=== PATIENT | female | born 2000 | race American Indian/Alaskan Native ===

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

== ENCOUNTER 2018-04-23 22:51 | Emergency (ER) | payer MEDICAID, OTHER ==
[2018-04-23 23:06] VITALS: BP 140/92
[2018-04-23] MEDS ORDERED: Oseltamivir 75 MG Cap PO ONE (23:32)
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
== END 2018-04-23 23:45 | disposition home or self-care (01) ==
LOC: DL.ED 22:51
DX: J10.1 Influenza due to other identified influenza virus with other respiratory manifestations (principal)
CPT/HCPCS: 87081; 87430; 87804; 99283; A9270

== ENCOUNTER 2020-08-08 14:00 | Emergency (ER) | payer MEDICAID, OTHER ==
[2020-08-08 15:14] VITALS: BP 135/83; PULSE 75
[2020-08-08] MEDS ORDERED: Ketorolac 30 MG/ML SDV IVPUSH ONE (15:54)
[2020-08-08] MEDS ORDERED: HYDROmorphone 0.5 MG/0.5 ML Syringe IVPUSH ONE (15:54)
[2020-08-08] MEDS ORDERED: Lidocaine 5% 700 MG Patch TRDERM ONE (15:55)
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
== END 2020-08-08 17:46 | disposition home or self-care (01) ==
LOC: DL.ED 14:00
DX: M25.511 Pain in right shoulder (principal); Z88.1 Allergy status to other antibiotic agents
CPT/HCPCS: 96374; 96375; 99283; 99283-25; A9270-GY; J1170; J1885

== ENCOUNTER 2020-09-23 19:05 | Emergency (ER) | payer MEDICAID, OTHER ==
[2020-09-23 19:12] VITALS: BP 141/92; PULSE 77
[2020-09-23] MEDS ORDERED: Ibuprofen 600 MG Tab PO ONE (19:18)
[2020-09-23] MEDS ORDERED: Mupirocin Oint 22 GM Tube TOP ONE (19:18)
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
== END 2020-09-23 19:31 | disposition home or self-care (01) ==
LOC: DL.ED 19:05
DX: S40.872A Other superficial bite of left upper arm, initial encounter (principal); S70.372A Other superficial bite of left thigh, initial encounter; Z88.1 Allergy status to other antibiotic agents; W54.0XXA Bitten by dog, initial encounter
CPT/HCPCS: 99284; A9270

== ENCOUNTER 2021-03-22 19:43 | Emergency (ER) | payer MEDICAID ==
[2021-03-22 20:50] LABS: RESPIRATORY SYNCYTIAL VIR NAA NEGATIVE (NEGATIVE)
[2021-03-22 20:56] LABS: CORONAVIRUS COVID-19 NAA POSITIVE (NEGATIVE)
[2021-03-22 21:19] VITALS: BP 116/61; PULSE 97
== END 2021-03-22 21:41 | disposition home or self-care (01) ==
LOC: DL.ED 19:43
DX: O98.512 Other viral diseases complicating pregnancy, second trimester (principal); U07.1 COVID-19; Z88.1 Allergy status to other antibiotic agents; Z3A.22 22 weeks gestation of pregnancy
CPT/HCPCS: 0241U; 99284

== ENCOUNTER 2021-07-13 14:21 | Inpatient (IN) | payer MEDICAID ==
[2021-07-13] MEDS ORDERED: Tranexamic Acid 1,000 MG in Sodium Chloride 0.9% 100 ML IV PRN (16:51)
[2021-07-13] MEDS ORDERED: Lactated Ringers 1,000 ML IV ONE (16:51)
[2021-07-13] MEDS ORDERED: Misoprostol 400 MCG (4 X 100 MCG TAB) RECTAL PRN ×2 (16:51→23:39)
[2021-07-13] MEDS ORDERED: Ondansetron 4 MG/2 ML SDV IVPUSH PRN (16:51)
[2021-07-13] MEDS ORDERED: Sodium Chloride 0.9% 10 ML Syringe FLUSH PRN (16:51)
[2021-07-13] MEDS ORDERED: Lidocaine 1% 30 ML SDV INJECT PRN (16:51)
[2021-07-13] MEDS ORDERED: Methylergonovine 0.2 MG/1 ML Amp IM PRN (16:51)
[2021-07-13] MEDS ORDERED: Carboprost Tromethamine 250 MCG/1 ML Amp IM PRN (16:51)
[2021-07-13] MEDS ORDERED: Acetaminophen 325 MG Tab PO PRN (16:51)
[2021-07-13] MEDS ORDERED: Penicillin G Potassium 5 MILLUNITS in Sodium Chloride 0.9% 100 ML IV ONE (16:51)
[2021-07-13] MEDS ORDERED: Lactated Ringers 1,000 ML IV SCH (17:00)
[2021-07-13] MEDS ORDERED: Labetalol 100 MG Tab PO ONE (17:01)
[2021-07-13] MEDS: Oxytocin/Normal Saline 30 UNIT/500 ML BAG IV SCH (17:20)
[2021-07-13] MEDS: Penicillin G Potassium 3 MILLUNITS in Sodium Chloride 0.9% 100 ML IV SCH (20:10)
[2021-07-13] MEDS ORDERED: Labetalol 100 MG Tab PO SCH (21:00)
[2021-07-13] MEDS ORDERED: Naloxone 2 MG/2 ML Syringe IVPUSH PRN (21:27)
[2021-07-13] MEDS ORDERED: Promethazine 25 MG/ML SDV IM PRN (21:27)
[2021-07-13] MEDS ORDERED: ePHEDrine 50 MG/ML SDV IVPUSH PRN (21:27)
[2021-07-13] MEDS ORDERED: Magnesium Sulfate/Water 4 GM in Premix Bag 1 BAG IV ONE ×2 (21:30→21:32)
[2021-07-13] MEDS ORDERED: Calcium Gluconate 10% 1 GM/10 ML SDV IV PRN (21:32)
[2021-07-13] MEDS: Magnesium Sulfate/Water 20 GM/500 ML BAG IV SCH (22:16)
[2021-07-13] MEDS ORDERED: fentaNYL 100 MCG/2 ML SDV IVPUSH PRN (22:22)
[2021-07-13] MEDS ORDERED: fentaNYL 100 MCG/2 ML SDV IVPUSH STA (23:22)
[2021-07-13] MEDS ORDERED: Simethicone 80 MG Tab.Chew PO PRN (23:39)
[2021-07-13] MEDS ORDERED: Benzocaine/Menthol 20%-0.5% Spray 78 GM Cannister TOP PRN (23:39)
[2021-07-14] MEDS: Oxytocin/Normal Saline 30 UNIT/500 ML BAG IV SCH (01:35)
[2021-07-14] MEDS: Penicillin G Potassium 3 MILLUNITS in Sodium Chloride 0.9% 100 ML IV SCH (01:52)
[2021-07-14] MEDS: Prenatal Multivitamin with Calcium/Folic Acid/Iron Tab PO SCH (08:33)
[2021-07-14] MEDS: Ibuprofen 800 MG Tab PO PRN (08:33)
[2021-07-14] MEDS: Ferrous Sulfate 325 MG Tab PO SCH ×2 (08:33→22:09)
[2021-07-14] MEDS: Docusate Sodium 100 MG Cap PO PRN ×2 (08:33→22:09)
[2021-07-14] MEDS: Ascorbic Acid 500 MG Tab PO SCH ×2 (08:35→22:09)
[2021-07-14] MEDS: Magnesium Sulfate/Water 20 GM/500 ML BAG IV SCH ×2 (08:37→18:34)
[2021-07-15] MEDS: Ferrous Sulfate 325 MG Tab PO SCH ×2 (09:00→21:25)
[2021-07-15] MEDS: Prenatal Multivitamin with Calcium/Folic Acid/Iron Tab PO SCH (09:00)
[2021-07-15] MEDS: Ascorbic Acid 500 MG Tab PO SCH ×2 (12:08→21:25)
[2021-07-15] MEDS: Docusate Sodium 100 MG Cap PO PRN ×2 (12:08→21:25)
[2021-07-16 08:46] VITALS: BP 124/65; PULSE 71
[2021-07-16] MEDS: Ibuprofen 800 MG Tab PO PRN (08:49)
[2021-07-16] MEDS: Docusate Sodium 100 MG Cap PO PRN (08:49)
[2021-07-16] MEDS: Ascorbic Acid 500 MG Tab PO SCH (08:50)
[2021-07-16] MEDS: Ferrous Sulfate 325 MG Tab PO SCH (08:50)
[2021-07-16] MEDS: Prenatal Multivitamin with Calcium/Folic Acid/Iron Tab PO SCH (08:50)
[2021-07-16] MEDS ORDERED: Famotidine 20 MG Tab PO SCH (09:00)
== END 2021-07-16 12:15 | disposition home or self-care (01) | DRG 807 ==
LOC: DL.OBCHECK 14:21 → DL.OB 16:10 → UNDOADMOB 16:10 → DL.OB 16:51 → OBSVTOIN 23:04 → DL.OB 23:04
PROVIDERS: ADMIT Family Medicine; ATTEND Family Medicine
PROC: 10E0XZZ Delivery of Products of Conception, External Approach (ICD-10-PCS; principal; 2021-07-13)
PROC: 3E033VJ Introduction of Other Hormone into Peripheral Vein, Percutaneous Approach (ICD-10-PCS; 2021-07-13)
PROC: 10907ZC Drainage of Amniotic Fluid, Therapeutic from Products of Conception, Via Natural or Artificial Opening (ICD-10-PCS; 2021-07-13)
PROC: 3E0P7VZ Introduction of Hormone into Female Reproductive, Via Natural or Artificial Opening (ICD-10-PCS; 2021-07-13)
DX: O14.14 Severe pre-eclampsia complicating childbirth (principal); Z37.0 Single live birth; D64.9 Anemia, unspecified; Z3A.38 38 weeks gestation of pregnancy; F43.10 Post-traumatic stress disorder, unspecified; O99.344 Other mental disorders complicating childbirth; O77.0 Labor and delivery complicated by meconium in amniotic fluid; Z20.822 Contact with and (suspected) exposure to COVID-19; O99.02 Anemia complicating childbirth; Z86.16 Personal history of COVID-19
CPT/HCPCS: 36415; 59409; 76819; 81003; 82565; 82570; 83735; 84156; 84450; 84460; 84520; 85027; A9270-GY; J2405; J2540; J2590; J3010; J3475; J7120; U0002

== ENCOUNTER 2021-10-19 19:09 | Emergency (ER) | payer MEDICAID | END 2021-10-19 20:20 | disposition home or self-care (01) | LOC: MERGE 19:09 → DL.ED 19:09 | DX: J06.9 Acute upper respiratory infection, unspecified (principal); Z88.1 Allergy status to other antibiotic agents; Z88.8 Allergy status to other drugs, medicaments and biological substances; Z20.822 Contact with and (suspected) exposure to COVID-19 | CPT/HCPCS: 87081; 87430; 99283; U0002 ==

== ENCOUNTER 2022-04-05 23:23 | Emergency (ER) | payer MEDICAID ==
[2022-04-06 00:05] LABS: ANION GAP 17.5 mEq/L (7-13); CHLORIDE,CL 102 mmol/L (98-107); SODIUM,NA 138 mmol/L (136-145)
[2022-04-06 00:10] LABS: ESTIMATED GFR 131 mL/min (>=60)
[2022-04-06 00:19] LABS: BENZODIAZEPINE,URINE NEGATIVE (NEGATIVE); MDMA (ECSTASY), URINE NEGATIVE (NEGATIVE); METHADONE,URINE NEGATIVE (NEGATIVE); METHAMPHETAMINES,URINE NEGATIVE (NEGATIVE); OPIATES,URINE NEGATIVE (NEGATIVE); TCA,URINE NEGATIVE (NEGATIVE)
[2022-04-06 00:20] LABS: AMPHETAMINES,URINE NEGATIVE (NEGATIVE); BARBITURATES,URINE NEGATIVE (NEGATIVE); OXYCODONE,URINE NEGATIVE (NEGATIVE); PHENCYCLIDINE,URINE NEGATIVE (NEGATIVE)
[2022-04-06] MEDS ORDERED: Sodium Chloride 0.9% 1,000 ML IV ONE (00:46)
[2022-04-06 00:48] LABS: CORONAVIRUS COVID-19 NAA NEGATIVE (NEGATIVE)
[2022-04-06] MEDS ORDERED: Ondansetron 4 MG/2 ML SDV IVPUSH ONE (00:52)
== END 2022-04-06 03:16 | disposition home or self-care (01) ==
LOC: DL.ED 23:23
DX: O99.613 Diseases of the digestive system complicating pregnancy, third trimester (principal); K52.9 Noninfective gastroenteritis and colitis, unspecified; Z88.1 Allergy status to other antibiotic agents; Z88.6 Allergy status to analgesic agent; Z3A.37 37 weeks gestation of pregnancy; Z20.822 Contact with and (suspected) exposure to COVID-19
CPT/HCPCS: 0240U; 36415; 76815; 80053; 80305-QW; 80307; 81001; 81025; 83605; 84702; 85025; 87040; 96361; 96374; 99284; 99284-25; J2405; J7030

== ENCOUNTER 2022-04-13 20:04 | Emergency (ER) | payer MEDICAID ==
[2022-04-13 21:17] LABS: ANION GAP 14.7 mEq/L (7-13)
== END 2022-04-13 23:58 | disposition home or self-care (01) ==
LOC: DL.ED 20:04
DX: O20.9 Hemorrhage in early pregnancy, unspecified (principal); Z3A.10 10 weeks gestation of pregnancy; Z88.1 Allergy status to other antibiotic agents; Z88.8 Allergy status to other drugs, medicaments and biological substances
CPT/HCPCS: 36415; 76815; 80053; 84702; 85025; 99284

== ENCOUNTER 2022-10-31 08:31 | Inpatient (IN) | payer MEDICAID ==
[2022-10-31] MEDS ORDERED: Acetaminophen 325 MG Tab PO PRN (09:13)
[2022-10-31] MEDS ORDERED: Misoprostol 400 MCG (4 X 100 MCG TAB) RECTAL PRN ×2 (09:13→13:29)
[2022-10-31] MEDS ORDERED: Naloxone 2 MG/2 ML Syringe IVPUSH PRN (09:13)
[2022-10-31] MEDS ORDERED: Carboprost Tromethamine 250 MCG/1 ML Amp IM PRN ×2 (09:13→13:29)
[2022-10-31] MEDS ORDERED: fentaNYL 100 MCG/2 ML SDV IVPUSH PRN (09:13)
[2022-10-31] MEDS ORDERED: Methylergonovine 0.2 MG/1 ML Amp IM PRN (09:13)
[2022-10-31] MEDS ORDERED: Sodium Chloride 0.9% 10 ML Syringe FLUSH PRN ×2 (09:13→13:29)
[2022-10-31] MEDS ORDERED: Lidocaine 1% 30 ML SDV INJECT ONE (09:13)
[2022-10-31] MEDS ORDERED: Ondansetron 4 MG/2 ML SDV IVPUSH PRN (09:13)
[2022-10-31] MEDS ORDERED: Tranexamic Acid 1,000 MG in Sodium Chloride 0.9% 100 ML IV PRN ×2 (09:13→13:29)
[2022-10-31] MEDS ORDERED: Lactated Ringers 1,000 ML IV ONE (09:13)
[2022-10-31] MEDS ORDERED: Lactated Ringers 1,000 ML IV SCH (09:15)
[2022-10-31] MEDS ORDERED: Oxytocin/Normal Saline 30 UNIT/500 ML BAG IV SCH (09:15)
[2022-10-31] MEDS ORDERED: Phenylephrine HCl In 0.9% NaCl 1 MG/10 ML Syringe IVPUSH PRN ×2 (09:18→10:18)
[2022-10-31] MEDS ORDERED: ePHEDrine 50 MG/ML SDV IVPUSH PRN ×2 (09:18→10:18)
[2022-10-31] MEDS ORDERED: Ropivacaine 200 MG in Premix Bag 1 BAG EPIDUR SCH ×2 (09:30→10:30)
[2022-10-31 09:46] LABS: MEAN CORPUSCULAR HEMOGLOBIN 25.1 pg (27.0-34.0); MEAN CORPUSCULAR HGB CONC 32.5 g/dL (33.0-35.0); MEAN CORPUSCULAR VOLUME 77.4 fL (80-100); RED BLOOD CELL COUNT 5.17 10^6/uL (4.2-5.4); WHITE BLOOD CELL COUNT,WBC 10.9 10^3/uL (5.0-10.0)
[2022-10-31] MEDS ORDERED: fentaNYL 100 MCG/2 ML SDV ONE (09:57)
[2022-10-31] MEDS ORDERED: Bupivacaine 0.25% 10 ML SDV ONE (09:57)
[2022-10-31] MEDS ORDERED: Witch Hazel Medicated Pads 100/Jar TOP PRN (13:29)
[2022-10-31] MEDS ORDERED: Ibuprofen 800 MG Tab PO PRN (13:29)
[2022-10-31] MEDS ORDERED: Simethicone 80 MG Tab.Chew PO PRN (13:29)
[2022-10-31] MEDS ORDERED: Benzocaine/Menthol 20%-0.5% Spray 78 GM Cannister TOP PRN (13:29)
[2022-10-31] MEDS ORDERED: Measles, Mumps & Rubella Vaccine 0.5 ML SDV SUBCUT ONE (13:36)
[2022-10-31] MEDS: Acetaminophen 325 MG Tab PO PRN ×2 (15:32→21:38)
[2022-10-31] MEDS: Docusate Sodium 100 MG Cap PO PRN (21:38)
[2022-11-01] MEDS: Acetaminophen 325 MG Tab PO PRN (05:35)
[2022-11-01] MEDS ORDERED: Prenatal Multivitamin with Calcium/Folic Acid/Iron Tab PO SCH (09:00)
[2022-11-01] MEDS: Docusate Sodium 100 MG Cap PO PRN (09:26)
== END 2022-11-01 16:40 | disposition home or self-care (01) | DRG 807 ==
LOC: DL.OBCHECK 08:31 → DL.OB 09:41 → OBSVTOIN 13:03 → DL.OB 13:03
PROVIDERS: ADMIT Family Medicine; ATTEND Family Medicine
PROC: 10E0XZZ Delivery of Products of Conception, External Approach (ICD-10-PCS; principal; 2022-10-31)
PROC: 3E033VJ Introduction of Other Hormone into Peripheral Vein, Percutaneous Approach (ICD-10-PCS; 2022-10-31)
PROC: 3E0R3BZ Introduction of Anesthetic Agent into Spinal Canal, Percutaneous Approach (ICD-10-PCS; 2022-10-31)
PROC: 00HU33Z Insertion of Infusion Device into Spinal Canal, Percutaneous Approach (ICD-10-PCS; 2022-10-31)
PROC: 3E0P7VZ Introduction of Hormone into Female Reproductive, Via Natural or Artificial Opening (ICD-10-PCS; 2022-10-31)
DX: O42.02 Full-term premature rupture of membranes, onset of labor within 24 hours of rupture (principal); Z37.0 Single live birth; O99.344 Other mental disorders complicating childbirth; F32.A Depression, unspecified; F43.10 Post-traumatic stress disorder, unspecified; Z3A.38 38 weeks gestation of pregnancy; Z88.1 Allergy status to other antibiotic agents; Z88.8 Allergy status to other drugs, medicaments and biological substances
CPT/HCPCS: 01967; 36415; 51702; 59409; 84112; 85027; 90707; A9270-GY; J2405; J2590; J2795; J7120

== ENCOUNTER 2024-02-13 13:09 | Observation (INO) | payer MEDICAID ==
[2024-02-13] MEDS ORDERED: Methylergonovine 0.2 MG/1 ML Amp IM PRN (13:33)
[2024-02-13] MEDS ORDERED: Ondansetron 4 MG/2 ML SDV IVPUSH PRN (13:33)
[2024-02-13] MEDS ORDERED: Carboprost Tromethamine 250 MCG/1 ML Amp IM PRN (13:33)
[2024-02-13] MEDS ORDERED: Tranexamic Acid 1,000 MG in Sodium Chloride 0.9% 100 ML IV PRN (13:33)
[2024-02-13] MEDS ORDERED: Sodium Chloride 0.9% 10 ML Syringe FLUSH PRN (13:33)
[2024-02-13] MEDS ORDERED: fentaNYL 100 MCG/2 ML SDV IVPUSH PRN (13:33)
[2024-02-13 14:03] LABS: HEMATOCRIT 35.3 % (37.0-47.0); HEMOGLOBIN 11.5 g/dL (12.0-16.0); MEAN CORPUSCULAR HEMOGLOBIN 25.2 pg (27.0-34.0); MEAN CORPUSCULAR HGB CONC 32.6 g/dL (33.0-35.0); MEAN CORPUSCULAR VOLUME 77.4 fL (80-100); RED BLOOD CELL COUNT 4.56 10^6/uL (4.2-5.4); WHITE BLOOD CELL COUNT,WBC 9.1 10^3/uL (5.0-10.0)
[2024-02-13] MEDS: Penicillin G Potassium 5 MILLUNITS in Sodium Chloride 0.9% 100 ML IV ONE (14:07)
[2024-02-13 14:38] LABS: ALANINE AMINOTRANSFERASE,ALT 10 U/L (14-59); ALBUMIN 2.2 g/dL (3.4-5.0); ALKALINE PHOSPHATASE 179 U/L (46-116); ANION GAP 14.9 mEq/L (7-13); ASPARTATE AMNIOTRANSFERASE,AST 17 U/L (15-37); BILIRUBIN TOTAL 0.3 mg/dL (0.2-1.0); BLOOD UREA NITROGEN,BUN 5 mg/dL (7-18); BUN/CREATININE RATIO 10.2 (No establ ref range); CALCIUM 8.6 mg/dL (8.5-10.1); CARBON DIOXIDE,CO2 23 mmol/L (21-32); CHLORIDE,CL 104 mmol/L (98-107); CREATININE 0.49 mg/dL (0.55-1.02); GLUCOSE RANDOM 72 mg/dL (70-99); POTASSIUM,K 3.9 mmol/L (3.5-5.1); PROTEIN TOTAL,TP 6.4 g/dL (6.4-8.2); SODIUM,NA 138 mmol/L (136-145)
[2024-02-13 14:39] LABS: A/G RATIO 0.52; ESTIMATED GFR 134 mL/min (>=60)
[2024-02-13] MEDS: Acetaminophen 325 MG Tab PO PRN (15:43)
[2024-02-13] MEDS: Penicillin G Potassium 3 MILLUNITS in Sodium Chloride 0.9% 100 ML IV SCH (17:41)
[2024-02-13] MEDS: Lactated Ringers 1,000 ML IV SCH (17:53)
[2024-02-13] MEDS: Oxytocin/Normal Saline 30 UNIT/500 ML BAG IV SCH (18:18)
[2024-02-13] MEDS ORDERED: fentaNYL 100 MCG/2 ML SDV ONE (20:09)
[2024-02-13] MEDS ORDERED: Bupivacaine 0.25% 10 ML SDV ONE (20:09)
[2024-02-13] MEDS ORDERED: Bupivacaine 0.25% 10 ML SDV NERVRT ONE (20:10)
[2024-02-13] MEDS ORDERED: fentaNYL 100 MCG/2 ML SDV EPIDUR ONE (20:10)
[2024-02-13] MEDS ORDERED: Ropivacaine 100 ML EPIDUR ONE (20:10)
[2024-02-13] MEDS ORDERED: Ketorolac 30 MG/ML SDV IVPUSH ONE (20:10)
[2024-02-13] MEDS ORDERED: Ondansetron 4 MG/2 ML SDV IV ONE (20:10)
[2024-02-13] MEDS ORDERED: Phenylephrine HCl In 0.9% NaCl 1 MG/10 ML Syringe IVPUSH PRN (20:30)
[2024-02-13] MEDS ORDERED: Ropivacaine 200 MG in Premix Bag 1 BAG EPIDUR SCH (20:30)
[2024-02-13] MEDS ORDERED: ePHEDrine 50 MG/ML SDV IVPUSH PRN (20:30)
[2024-02-14] MEDS ORDERED: Bupivacaine 0.25% 10 ML SDV ONE (01:33)
[2024-02-14] MEDS ORDERED: fentaNYL 100 MCG/2 ML SDV ONE (01:33)
[2024-02-14] MEDS ORDERED: Misoprostol 100 MCG Tab RECTAL PRN ×2 (02:32→02:59)
[2024-02-14] MEDS ORDERED: Bisacodyl 10 MG Supp RECTAL PRN (02:59)
[2024-02-14] MEDS ORDERED: Carboprost Tromethamine 250 MCG/1 ML Amp IM PRN (02:59)
[2024-02-14] MEDS ORDERED: Witch Hazel Medicated Pads 100/Jar TOP PRN (02:59)
[2024-02-14] MEDS ORDERED: Simethicone 80 MG Tab.Chew PO PRN (02:59)
[2024-02-14] MEDS ORDERED: Sodium Chloride 0.9% 10 ML Syringe FLUSH PRN (02:59)
[2024-02-14] MEDS ORDERED: Tranexamic Acid 1,000 MG in Sodium Chloride 0.9% 100 ML IV PRN (02:59)
[2024-02-14] MEDS ORDERED: Oxytocin 10 Units/1 ML SDV IM PRN (02:59)
[2024-02-14] MEDS: Acetaminophen/HYDROcodone 325-10 MG Tab PO PRN (03:47)
[2024-02-14] MEDS: Lidocaine 1% 30 ML SDV INJECT ONE (06:11)
[2024-02-14] MEDS: Lactated Ringers 1,000 ML IV ONE (06:11)
[2024-02-14] MEDS: Benzocaine/Menthol 20%-0.5% Spray 78 GM Cannister TOP PRN (10:07)
[2024-02-14] MEDS: Acetaminophen 325 MG Tab PO PRN (10:08)
[2024-02-14] MEDS: Ferrous Sulfate 325 MG Tab PO SCH (10:08)
[2024-02-14] MEDS: Prenatal Multivitamin with Calcium/Folic Acid/Iron Tab PO SCH (10:08)
[2024-02-14] MEDS: Docusate Sodium 100 MG Cap PO PRN (10:08)
[2024-02-14] MEDS: Sertraline 50 MG Tab PO SCH (23:37)
[2024-02-15 06:35] LABS: HEMATOCRIT 33.1 % (37.0-47.0); HEMOGLOBIN 10.4 g/dL (12.0-16.0); MEAN CORPUSCULAR HEMOGLOBIN 24.9 pg (27.0-34.0); MEAN CORPUSCULAR HGB CONC 31.4 g/dL (33.0-35.0); MEAN CORPUSCULAR VOLUME 79.4 fL (80-100); RED BLOOD CELL COUNT 4.17 10^6/uL (4.2-5.4); WHITE BLOOD CELL COUNT,WBC 12.3 10^3/uL (5.0-10.0)
== END 2024-02-16 12:55 | disposition home or self-care (01) ==
LOC: DL.OBCHECK 13:09 → DL.OB 13:33 → INTOOBSV 02-14 02:43 → OBSVTOIN 02-14 02:43
PROVIDERS: ADMIT Family Medicine; ATTEND Family Medicine
DX: O99.013 Anemia complicating pregnancy, third trimester (principal); Z3A.37 37 weeks gestation of pregnancy; Z37.0 Single live birth
CPT/HCPCS: 36415; 51701; 51702; 59409; 80053; 85027; A9270; C1729; J0665; J1885; J2405; J2540; J2590; J2795; J3010; J3490; J7120

== ENCOUNTER 2024-07-02 22:50 | Emergency (ER) | payer MEDICAID ==
[2024-07-03] MEDS: Sulfamethoxazole/Trimethoprim 800-160 MG Tab PO ONE (00:34)
== END 2024-07-03 00:34 | disposition home or self-care (01) ==
LOC: DL.ED 22:50
DX: L03.311 Cellulitis of abdominal wall (principal); Z88.1 Allergy status to other antibiotic agents; Z88.6 Allergy status to analgesic agent; Z79.899 Other long term (current) drug therapy
CPT/HCPCS: 99283; A9270